=== PATIENT | male | born 1990 | race African-American/Black ===

== ENCOUNTER 2018-06-06 14:32 | Emergency (ER) | payer SELFPAY ==
[~2018-06-06] VITALS: Ht 172.7 cm; Wt 77.1 kg
[2018-06-06 14:34] VITALS: BP 122/59
[2018-06-06] MEDS ORDERED: DIPHTH,PERTUSS(ACELL),TET TOX 0.5 ML DISP.SYRIN. VAX IM ONE (15:15)
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
== END 2018-06-06 15:15 | disposition home or self-care (01) ==
LOC: ER 14:32
DX: S01.512A Laceration without foreign body of oral cavity, initial encounter (principal); F17.210 Nicotine dependence, cigarettes, uncomplicated; V27.4XXA Motorcycle driver injured in collision with fixed or stationary object in traffic accident, initial encounter; Y93.89 Activity, other specified; Y92.410 Unspecified street and highway as the place of occurrence of the external cause; Y99.8 Other external cause status
CPT/HCPCS: 90471; 90715; 99284

== ENCOUNTER 2018-07-16 15:36 | Emergency (ER) | payer SELFPAY ==
[~2018-07-16] VITALS: Ht 170.2 cm; Wt 79.4 kg
[2018-07-16 16:07] VITALS: BP 144/87
--- NOTE | 2018-07-16 16:45 | PHYS DOC ---
Past Medical History Past Medical History: No Pertinent History Past Surgical History: No Surgical History Additional Information: 2 TO 3 CIGARETTES A DAY Alcohol Use: None Drug Use: None Adult General Chief Complaint Chief Complaint: SORE THROAT HPI HPI Patient is a 28 year old AA male who presents to the emergency Department today with complaints of a sore throat and a productive cough with white-yellow sputum for the last 2-3 days. Patient denies any shortness of breath, fever, nausea, vomiting, diarrhea, abdominal pain, ear pain, or dizziness. He states that he is a smoker and smokes about 4 cigarettes a day. Currently he reports his pain is a 5 out of 10 on the pain scale. PT states that he will need a work excuse for today's visit. Review of Systems Review of Systems Constitutional: Denies fever or chills [] Eyes: Denies change in visual acuity, redness, or eye pain [] HENT: Denies nasal congestion or ear pain, reports sore throat Respiratory: Denies wheezing or shortness of breath, see HPI Cardiovascular: No additional information not addressed in HPI [] GI: Denies abdominal pain, nausea, vomiting, or diarrhea [] Musculoskeletal: Denies back pain or joint pain [] Integument: Denies rash or skin lesions [] Neurologic: Denies headache, focal weakness or sensory changes [] All other systems were reviewed and found to be within normal limits, except as documented in this note. Allergies Allergies Allergies Coded Allergies Type Severity Reaction Last Updated Verified No Known Drug Allergies 06/06/18 No Physical Exam Physical Exam Constitutional: Well developed, well nourished, no acute distress, non-toxic appearance. [] HENT: Normocephalic, atraumatic, bilateral external ears normal, bilateral TMs normal, mild erythema of posterior pharynx, 1+ tonsils bilat, oropharynx moist, no oral exudates, nose normal. [] Eyes: conjunctiva normal, no discharge. [] Neck: Normal range of motion, no tenderness, supple, no stridor. [] Cardiovascular:Heart rate regular rhythm, no murmur [] Lungs & Thorax: Bilateral breath sounds clear to auscultation [] Skin: Warm, dry, no erythema, no rash. [] Extremities: No cyanosis, no clubbing, ROM intact, no edema. [] Neurologic: Alert and oriented X 3, normal motor function, normal sensory function, no focal deficits noted. [] Psychologic: Affect normal, judgement normal, mood normal. [] Current Patient Data Vital Signs Vital Signs Date Time Temp Pulse Resp B/P (MAP) Pulse Ox O2 Delivery O2 Flow Rate FiO2 07/16/18 16:07 98.0 111 20 144/87 (106) 97 Room Air 98.0 EKG EKG [] Radiology/Procedures Radiology/Procedures rapid strep neg[] Course & Med Decision Making Course & Med Decision Making Pertinent Labs and Imaging studies reviewed. (See chart for details) [] Dragon Disclaimer Dragon Disclaimer This electronic medical record was generated, in whole or in part, using a voice recognition dictation system. Departure Departure Impression: Primary Impression: URI with cough and congestion Additional Impression: Pharyngitis, acute Disposition: 01 HOME, SELF-CARE Condition: STABLE Referrals: NO PCP (PCP) Patient Instructions: Upper Respiratory Infection, Adult, [id number], Viral and Bacterial Pharyngitis, [id number] Additional Instructions: Fill prescription and use as directed. Recommend warm salt water gargles as needed for relief of discomfort. Alternate Tylenol and ibuprofen as needed for fever/pain. Recommend use of a Cool mist humidifier in room at bedtime. Increase clear fluids. Avoid triggers such as smoke, fragrance, dust, and pollen. Follow-up with your primary care doctor if her symptoms persist, return to the ER if they worsen. Scripts Benzonatate (TESSALON PERLE) 100 Mg Capsule 1 CAP PO TID PRN for COUGH for 7 Days, #21 CAP 0 Refills Prov: GEOFFREY POWERS TIRE MAINTENANCE TECHNICIAN 07/16/18 Problem Qualifiers Additional Impression: Pharyngitis, acute Pharyngitis/tonsillitis etiology: unspecified etiology Qualified Codes: J02.9 - Acute pharyngitis, unspecified GEOFFREY POWERS TIRE MAINTENANCE TECHNICIAN Jul 16, 2018 16:45
[2018-07-16] MEDS ORDERED: BENZ100C PO (16:53)
== END 2018-07-16 17:01 | disposition home or self-care (01) ==
LOC: ER 15:36
DX: J02.9 Acute pharyngitis, unspecified (principal); F17.210 Nicotine dependence, cigarettes, uncomplicated
CPT/HCPCS: 87070; 87880; 99283